=== PATIENT | female | born 1975 | race American Indian/Alaskan Native ===

== ENCOUNTER 2018-11-01 07:36 | Emergency (ER) | payer MEDICARE ==
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
[2018-11-01] MEDS ORDERED: IBUPROFEN PO ONE (09:53)
[2018-11-01] MEDS ORDERED: CATAPRES PO ONE (09:53)
[2018-11-01 10:31] VITALS: BP 167/92
== END 2018-11-01 10:34 | disposition home or self-care (01) ==
LOC: ED 07:36
DX: S16.1XXA Strain of muscle, fascia and tendon at neck level, initial encounter (principal); I10 Essential (primary) hypertension; M25.552 Pain in left hip; S46.912A Strain of unspecified muscle, fascia and tendon at shoulder and upper arm level, left arm, initial encounter; V49.49XA Driver injured in collision with other motor vehicles in traffic accident, initial encounter; Y93.89 Activity, other specified; Y92.89 Other specified places as the place of occurrence of the external cause; Y99.8 Other external cause status
CPT/HCPCS: 99282